=== PATIENT | male | born 1970 | race Caucasian/White ===

== ENCOUNTER 2017-01-04 16:29 | Inpatient (IN) | payer BC ==
[~2017-01-04] VITALS: Ht 180.3 cm; Wt 92.8 kg
[2017-01-04 16:51] VITALS: BP 130/94; PULSE 60; RESP 16; TEMP 98; O2SAT 99
--- NOTE | 2017-01-04 17:12 | HHI.HP ---
[facility] Service [facility] Primary Care Physician No Primary Care Physician Admission Diagnosis Diagnoses: Chief Complaint: Finger pain Travel History International Travel<30 Days: No Contact w/Intl Traveler <30 Da: No Traveled to Known Affected Are: No History of Present Illness This patient is a 46-year-old gentleman who is otherwise healthy. 9 days ago he did have an injury with fluid while moving lumber. He says he was working in and felt a stabbing sensation in his second digit of his right hand. He thought he had a large we splinter which she pulled out. Over the last several days he's had increasing swelling and redness. Today he can no longer bend his finger at this second joint and there is a fluid collection on the palmar aspect of the finger. Patient does not have a fever or chills but has had increasing pain not relieved with ibuprofen at home but relieved with Dilaudid here in the emergency room. Patient was seen in the emergency room and recommend for admission due to the significant change of the finger. Review of Systems Constitutional: DENIES: Diaphoretic episodes, Fatigue, Fever, Weight gain, Weight loss, Chills, Dizziness, Change in appetite, Night Sweats Endocrine: DENIES: Heat/cold intolerance, Polydipsia, Polyuria, Polyphagia Eyes: DENIES: Blurred vision, Eye pain Ears, nose, mouth, throat: DENIES: Tinnitus, Hearing loss, Vertigo, Nasal discharge, Oral lesions, Throat pain, Hoarseness, Ear Pain, Running Nose, Epistaxis, Sinus Pain, Toothache, Odynophagia Respiratory: DENIES: Apneas, Cough, Snoring, Wheezing, Hemoptysis, Sputum production, Shortness of breath Cardiovascular: DENIES: Chest pain, Palpitations, Syncope, Dyspnea on Exertion , PND, Lower Extremity Edema, Orthopnea, Claudication Genitourinary: DENIES: Sexual dysfunction, Urinary frequency, Urinary incontinence, Urgency, Hematuria, Dysuria, Nocturia, Penile Discharge, Testicular Pain, Testicular Swelling Musculoskeletal: COMPLAINS OF: Joint pain, Joint Swelling Integumentary: DENIES: Abnormal pigmentation, Nail changes, Pruritus, Rash Hematologic/lymphatic: DENIES: Bruising, Lymphadenopathy Immunologic/allergic: DENIES: Eczema, Urticaria Neurologic: DENIES: Abnormal gait, Headache, Localized weakness, Paresthesias, Seizures, Speech Problems, Tremor, Poor Balance Psychiatric: DENIES: Anxiety, Confusion, Mood changes, Depression, Hallucinations, Agitation, Suicidal Ideation, Homicidal Ideation, Delusions Past Family Social History Past Medical History Asthma Past Surgical History Right knee Nasal septoplasty Reported Medications Denies prescription medications Allergies: Coded Allergies: No Known Allergies (Unverified , 01/04/17) Active Ordered Medications Denies Family History Mother is healthy, father had hypertension Social History No tobacco or alcohol dependency patient lives with his girlfriend and works as a mechanical project engineer Physical Exam Vital Signs Vital Signs Date Time Temp Pulse Resp B/P Pulse Ox O2 Delivery O2 Flow Rate FiO2 01/04/17 16:51 98.0 60 16 130/94 99 Physical Exam GENERAL: This is a well-nourished, well-developed patient, in no apparent distress. SKIN: No rashes, ecchymoses or lesions. Cool and dry. HEAD: Atraumatic. Normocephalic. No temporal or scalp tenderness. EYES: Pupils equal round and reactive. Extraocular motions intact. No scleral icterus. No injection or drainage. ENT: Nose without bleeding, purulent drainage or septal hematoma. Throat without erythema, tonsillar hypertrophy or exudate. Uvula midline. Airway patent. NECK: Trachea midline. No JVD or lymphadenopathy. Supple, nontender, no meningeal signs. CARDIOVASCULAR: Regular rate and rhythm without murmurs, gallops, or rubs. RESPIRATORY: Clear to auscultation. Breath sounds equal bilaterally. No wheezes , rales, or rhonchi. GASTROINTESTINAL: Abdomen soft, non-tender, nondistended. No hepato-splenomegaly , or palpable masses. No guarding. MUSCULOSKELETAL: Right index finger is very swollen and erythematous with a palmar sided fluid collection, other 3 Extremities without clubbing, cyanosis, or edema. No joint tenderness, effusion, or edema noted. No calf tenderness. Negative Homans sign bilaterally. NEUROLOGICAL: Awake and alert. Cranial nerves II through XII intact. Motor and sensory grossly within normal limits. Five out of 5 muscle strength in all muscle groups. Normal speech. Laboratory CBC 01/04 shows leukocytosis Imaging On my review X-ray from [place] emergency room does show possibly to foreign bodies with excessive swelling and cellulitic changes Assessment and Plan Problem List: (1) Cellulitis and abscess of hand ICD Code: L03.119 Status: Acute Plan: We'll continue with IV antibiotics Hand surgery evaluation for foreign body Continue pain medication as needed Assessment and Plan Plan of care to be determined by Hospital course Code Status Full code Discussed Condition With ER Dr. Cruz, patient girlfriend and [facility] RN Physician Certification 2 Midnight Certification Type: Admission for Inpatient Services Order for Inpatient Services The services are ordered in accordance with Medicare regulations or non- Medicare payer requirements, as applicable. In the case of services not specified as inpatient-only, they are appropriately provided as inpatient services in accordance with the 2-midnight benchmark. Estimated LOS (days): 3 3 days is the estimated time the patient will need to remain in the hospital, assuming treatment plan goals are met and no additional complications. Post-Hospital Plan: Home Mckenzie Lennon MD Jan 04, 2017 17:12
[2017-01-04] MEDS ORDERED: ONDANSETRON HCL 4 MG/2 ML VIAL IVP PRN (17:15)
[2017-01-04] MEDS ORDERED: ACETAMINOPHEN 325 MG TAB PO PRN (17:15)
[2017-01-04] MEDS: IBUPROFEN 400 MG TAB PO PRN ×2 (18:04→22:57)
[2017-01-04] MEDS: HYDROmorphone HCL PF 1 MG/ML VIAL IV PUSH PRN ×2 (18:05→22:56)
[2017-01-04 20:00] VITALS: BP 126/80; PULSE 61; PULSE 62; RESP 18; TEMP 97.9; O2SAT 98
[2017-01-04] MEDS ORDERED: VANCOMYCIN INJ 1,000 MG in SODIUM CHLOR 0.9% 250 ML INJ 250 ML IV SCH (21:15)
[2017-01-04] MEDS ORDERED: Vancomycin Consult Pharmacy 1 EA OTHER SCH (21:15)
[2017-01-04] MEDS ORDERED: HYDROmorphone HCL PF 1 MG/ML VIAL IV PUSH ONE (21:45)
[2017-01-04] MEDS: cefTRIAXone INJ 1,000 MG in SODIUM CHLORIDE 0.9% INJ 100 ML IV SCH (22:10)
[2017-01-04 22:13] LABS: CHLORIDE 103 MEQ/L (98-107); POTASSIUM 3.9 MEQ/L (3.5-5.1); SODIUM (NA) 139 MEQ/L (136-145)
[2017-01-04 22:17] LABS: ANION GAP 6 MEQ/L (5-15); BICARBONATE 30.4 MEQ/L (21.0-32.0); BLOOD UREA NITROGEN 12 MG/DL (7-18)
[2017-01-04 22:20] LABS: ALT (GPT) 18 U/L (12-78); AST (GOT) 10 U/L (15-37); GLOMERULAR FILTRATION RATE 90 ML/MIN (>89)
[2017-01-04 22:22] LABS: TOTAL BILIRUBIN ADULT 0.3 MG/DL (0.2-1.0)
[2017-01-04 22:23] LABS: ALKALINE PHOSPHATASE 57 U/L (45-117)
[2017-01-04] MEDS: VANCOMYCIN INJ 1,500 MG in SODIUM CHLORID 0.9% 500 ML INJ 500 ML IV SCH (23:30)
[2017-01-05] VITALS: BP 123/84; PULSE 60; RESP 18; TEMP 99.5; O2SAT 96
[2017-01-05] MEDS: IBUPROFEN 400 MG TAB PO PRN ×2 (05:30→12:08)
[2017-01-05] MEDS: HYDROmorphone HCL PF 1 MG/ML VIAL IV PUSH PRN ×4 (05:31→22:58)
[2017-01-05 06:18] LABS: AUTOMATED NEUTROPHIL # 7.9 TH/MM3 (1.8-7.7); BASOPHIL # 0.1 TH/MM3 (0-0.2); BASOPHIL % 0.5 % (0.0-2.0); EOSINOPHIL # 1.1 TH/MM3 (0-0.4); EOSINOPHIL % 8.3 % (0.0-4.0); HEMATOCRIT 37.6 % (39.0-51.0); HEMO FLAGS DIFF FINAL; LYMPH % 22.8 % (9.0-44.0); MEAN CORPUSCULAR HGB CONC 33.7 % (32.0-36.0); MONO % 9.2 % (0.0-8.0); NEUT % 59.2 % (16.0-70.0); PLATELET COUNT 259 TH/MM3 (150-450); RED BLOOD COUNT 4.22 MIL/MM3 (4.50-5.90); RED CELL DISTRIBUTION WIDTH 11.5 % (11.6-17.2); WHITE BLOOD COUNT 13.3 TH/MM3 (4.0-11.0)
[2017-01-05] MEDS ORDERED: HYDROmorphone HCL PF 1 MG/ML VIAL IV PUSH ONE (06:30)
[2017-01-05] MEDS ORDERED: ACETAMINOPHEN/HYDROcodone 325 MG/7.5 MG TAB PO PRN (07:15)
[2017-01-05 08:00] VITALS: BP 103/72; PULSE 64; RESP 18; TEMP 97.3; O2SAT 97
--- NOTE | 2017-01-05 10:31 | HHI.PR ---
Subjective Remarks Patient seen today in follow-up for Finger infection. No new complaints today. Tolerating IV antibiotics without difficulty. Care plan discussed with patient, [facility] nurse Objective Vitals Vital Signs Date Time Temp Pulse Resp B/P Pulse Ox O2 Delivery O2 Flow Rate FiO2 01/05/17 08:00 97.3 64 18 103/72 97 01/05/17 06:05 16 01/05/17 06:05 16 01/05/17 00:00 99.5 60 18 123/84 96 01/04/17 22:44 16 01/04/17 20:00 97.9 62 18 126/80 98 01/04/17 20:00 97.9 61 18 126/80 98 01/04/17 16:51 98.0 60 16 130/94 99 I/O 01/04/17 01/04/17 01/04/17 01/05/17 01/05/17 01/05/17 07:00 15:00 23:00 07:00 15:00 23:00 Intake Total 240 ml 280 ml Balance 240 ml 280 ml Intake Oral 240 ml 280 ml # Voids 1 1 # Bowel Movements 0 0 Result Diagram: 01/05/17 0503 01/04/17 2151 Objective Remarks GENERAL: This is a well-nourished, well-developed patient, in no apparent distress. CARDIOVASCULAR: Regular rate and rhythm without murmurs, gallops, or rubs. RESPIRATORY: Clear to auscultation. Breath sounds equal bilaterally. No wheezes , rales, or rhonchi. GASTROINTESTINAL: Abdomen soft, non-tender, nondistended. Normal active bowel sounds MUSCULOSKELETAL: Right index swelling continues, other Extremities without clubbing, cyanosis, or edema. NEURO: Alert & Oriented x4 to person, place, time, situation. Moves all ext x4 A/P Problem List: (1) Cellulitis and abscess of hand ICD Code: L03.119 Status: Acute Plan: We'll continue with IV antibiotics (Rocephin/vancomycin empiric) Hand surgery for foreign body removal and further evaluation or in a.m. Continue pain medication as needed Assessment and Plan Transferred from [facility], records reviewed Mckenzie Lennon MD Jan 05, 2017 10:31
[2017-01-05 12:00] VITALS: BP 112/81; PULSE 59; RESP 18; TEMP 96.4; O2SAT 98
[2017-01-05] MEDS: VANCOMYCIN INJ 1,500 MG in SODIUM CHLORID 0.9% 500 ML INJ 500 ML IV SCH ×2 (12:08→22:32)
[2017-01-05] MEDS ORDERED: KETOROLAC TROMETHAMINE 30 MG/ML (IVP) VIAL IV PUSH ONE (12:30)
--- NOTE | 2017-01-05 12:47 | MB ---
cc: FABRICE JIMENEZ III, M.D. DATE OF CONSULTATION 01/05/2017 REASON FOR CONSULTATION The patient is a 46-year-old right-hand dominant male who about nine days ago states he was moving plywood and felt something in his right index finger. He thought he had pulled a splinter out. Over the last couple of days, he has had increased redness and swelling and he presented to the emergency room yesterday in [place] and he appears to have cellulitis and possible abscess in the right index finger. PAST MEDICAL HISTORY Denied PAST SURGICAL HISTORY 1. Right knee surgery 2. Septoplasty MEDICATIONS Denied ALLERGIES NO KNOWN DRUG ALLERGIES. SOCIAL HISTORY He denies smoking. PAST MEDICAL HISTORY Asthma according to report. FAMILY HISTORY Family history is noncontributory to this illness. REVIEW OF SYSTEMS Does not complain of any headaches, blurry or double vision. Does not complain of any coughing, wheezing or shortness of breath. He is not complaining of any chest pain or palpitations. He is not complaining of any nausea, vomiting, or abdominal pain. He is not complaining of any burning, frequency or urgency of urination. He is not complaining of any spine, neck or back pain. He is not complaining of any lower extremity weakness or swelling. He is not complaining of night sweats, fevers or chills. He is not complaining of any anxiety, depression or suicidal ideations. X-rays were performed and reviewed yesterday and these revealed no fractures, foreign bodies, or dislocations. Although in the area infection, there may be a small foreign body at the tip of the index finger from previous injury, but there is soft tissue swelling in the index finger. PHYSICAL EXAM He is well-developed and well-nourished in no apparent distress resting comfortably in bed. LABORATORY FINDINGS White blood cell count 13.3 thousand, hemoglobin 12.7 grams/deciliter, platelet count 259,000. BUN and creatinine are 12 and 0.9. VITAL SIGNS: Temperature is 97.3, heart rate 64, respiratory rate 18, blood pressure 103/72, 97% pulse oximetry. EXAMINATION OF THE RIGHT HAND: Reveals a swollen slightly erythematous right index finger with most of the erythema over the proximal phalanx. There is an eschar over the volar aspect of the middle phalanx. Capillary refill is less than two seconds in all fingertips. The finger is swollen. There is no evidence of any proximal streaking. There is no tenderness to palpation in the palm. He has a palpable radial pulse. There is no epitrochlear or axillary adenopathy palpable. There are no other wounds. IMPRESSION Right index finger infection with cellulitis. PLAN The plan is to go to the operating room tomorrow. I am going to order an IV pole sling elevation of his right hand full-time. Continue on the antibiotics of vancomycin and Rocephin that he is on right now. I discussed this with the patient and the nurse and they understand and are requesting that we proceed. MD SEEMA Madison III/VERONIQUE /12:34 PM /12:43 PM
[2017-01-05] MEDS: ACETAMINOPHEN/HYDROcodone 325 MG/7.5 MG TAB PO PRN ×2 (15:06→20:31)
[2017-01-05 16:00] VITALS: BP 100/66; PULSE 72; RESP 18; TEMP 97; O2SAT 96
[2017-01-05 20:00] VITALS: BP 116/69; PULSE 81; RESP 18; TEMP 96.3; O2SAT 96
[2017-01-05] MEDS: cefTRIAXone INJ 1,000 MG in SODIUM CHLORIDE 0.9% INJ 100 ML IV SCH (21:53)
[2017-01-06] VITALS: BP 129/82; PULSE 90; RESP 18; TEMP 100.2; O2SAT 96
[2017-01-06] MEDS: ACETAMINOPHEN/HYDROcodone 325 MG/7.5 MG TAB PO PRN ×5 (03:10→22:38)
[2017-01-06] MEDS ORDERED: BUPIVACAINE HCL PF 0.5% 30 ML VIAL ONE (07:44)
[2017-01-06] MEDS ORDERED: LIDOCAINE HCL 2% 50 ML VIAL ONE (07:44)
[2017-01-06] MEDS ORDERED: NEOMYCIN/POLYMYXIN 1 ML G.U. IRRIGANT ONE (07:45)
[2017-01-06] MEDS: HYDROmorphone HCL PF 1 MG/ML VIAL IV PUSH PRN ×4 (08:54→20:09)
[2017-01-06 08:56] VITALS: BP 146/90; PULSE 83; RESP 16; TEMP 98.2; O2SAT 97
[2017-01-06] MEDS ORDERED: PHARMACY ORDERED LAB ONE ×2 (10:45→22:45)
[2017-01-06] MEDS: VANCOMYCIN INJ 1,500 MG in SODIUM CHLORID 0.9% 500 ML INJ 500 ML IV SCH ×2 (11:00→22:38)
--- NOTE | 2017-01-06 11:43 | HHI.PR ---
Subjective Remarks Patient seen today in follow-up for right hand index finger infection. There is some spontaneous opening and drainage of the finger. Patient tolerating vancomycin and Rocephin without difficulty. Pain is minimal and relieved with IV narcotics. Objective Vitals Vital Signs Date Time Temp Pulse Resp B/P Pulse Ox O2 Delivery O2 Flow Rate FiO2 01/06/17 08:56 98.2 83 16 146/90 97 01/06/17 00:00 100.2 90 18 129/82 96 01/05/17 20:00 96.3 81 18 116/69 96 01/05/17 16:00 97.0 72 18 100/66 96 01/05/17 12:00 96.4 59 18 112/81 98 I/O 01/05/17 01/05/17 01/05/17 01/06/17 01/06/17 01/06/17 07:00 15:00 23:00 07:00 15:00 23:00 Intake Total 280 ml 560 ml 240 ml Output Total 0 ml Balance 280 ml 560 ml 240 ml Intake Oral 280 ml 240 ml IV Total 560 ml Output Stool Total 0 ml # Voids 1 2 2 # Bowel Movements 0 0 Result Diagram: 01/05/17 0503 01/04/17 2151 Objective Remarks GENERAL: This is a well-nourished, well-developed patient, in no apparent distress. CARDIOVASCULAR: Regular rate and rhythm without murmurs, gallops, or rubs. RESPIRATORY: Clear to auscultation. Breath sounds equal bilaterally. No wheezes , rales, or rhonchi. GASTROINTESTINAL: Abdomen soft, non-tender, nondistended. Normal active bowel sounds MUSCULOSKELETAL: Right index swelling with area of open serosanguineous drainage , other Extremities without clubbing, cyanosis, or edema. NEURO: Alert & Oriented x4 to person, place, time, situation. Moves all ext x4 A/P Problem List: (1) Cellulitis and abscess of hand ICD Code: L03.119 Status: Acute Plan: We'll continue with IV antibiotics (Rocephin/vancomycin empiric) Hand surgery for foreign body removal and further evaluation today Continue IV Dilaudid for pain medication as needed Assessment and Plan Transferred from [facility], records reviewed Mckenzie Lennon MD Jan 06, 2017 11:43
[2017-01-06] MEDS ORDERED: MIDAZOLAM HCL 2 MG/2 ML VIAL ONE (12:12)
[2017-01-06] MEDS ORDERED: ONDANSETRON HCL 4 MG/2 ML VIAL IV PUSH ONE (13:44)
[2017-01-06] MEDS ORDERED: PROPOFOL 200 MG/20 ML AMP IV ONE (13:44)
--- NOTE | 2017-01-06 14:52 | MP ---
cc: SUHAS MARISCAL III, M.D. DATE OF SURGERY: 01/06/2017 PREOPERATIVE DIAGNOSIS Right index finger infection. POSTOPERATIVE DIAGNOSIS Right index finger infection. PROCEDURE Right index finger incision and drainage. SURGEON Suhas Mariscal III, MD DETAILS OF PROCEDURE The patient was brought to the operating room and placed supine on the operating table. After the correct site and side of surgery were verified by members of each team in the room multiple times including the patient and myself and after adequate preoperative markings were verified by everyone and after an adequate preoperative timeout was performed to everyone's satisfaction and after adequate general anesthesia had been achieved, the right upper extremity was prepped and draped in traditional sterile surgical fashion. A 50/50 mixture of 2% plain lidocaine and 0.5% plain Marcaine was infiltrated in the skin and subcutaneous tissue at the base of the index finger at the metacarpal level in the palm for a metacarpal level block. The hand was elevated then pressure was held on the brachial artery for one minute and a highly placed well-padded axillary tourniquet was inflated to 200 mmHg for a total of 11 minutes. A [place] style incision was made at the volar aspect of the finger over the proximal and middle phalanges volarly and purulent fluid was obtained. This was cultured and passed off the field as a specimen for a stat. Gram stain as well as routine culture and sensitivity. All infected fluid and tissue was then removed sharply. Exploration proximally did not reveal any further drainage coming from the palm. The axillary tourniquet was released. The hand and all the fingers became immediately soft, pink and warm and had brisk capillary refill of less than 2 seconds including the index finger. Two liters worth of antibiotic antiseptic saline solution was then used to thoroughly flush out the wound which was also scrubbed. Quarter-inch iodoform was placed in the deepest part of the wound. The wound was left wide open. The hand and arm were cleansed and dried. A sterile bulky protective dressing was made in the usual fashion. The patient was awakened from anesthesia and transported to the post-anesthesia care unit in stable condition at the end of the case. The sponge, needle and instrument counts were correct at the end of the case as reported by the nurses in the room. MD JL Madison III /1:36 PM /2:44 PM
[2017-01-06 16:03] LABS: BICARBONATE 28.5 MEQ/L (21.0-32.0)
[2017-01-06 16:08] LABS: BASOPHIL # 0.2 TH/MM3 (0-0.2); EOSINOPHIL # 0.1 TH/MM3 (0-0.4); EOSINOPHIL % 0.9 % (0.0-4.0); LYMPH % 5.6 % (9.0-44.0); LYMPHOCYTE # 0.9 TH/MM3 (1.0-4.8); MEAN CELL VOLUME 88.5 FL (80.0-100.0); MEAN CORPUSCULAR HEMOGLOBIN 30.5 PG (27.0-34.0); MEAN CORPUSCULAR HGB CONC 34.5 % (32.0-36.0); MONO % 1.9 % (0.0-8.0); NEUT % 90.6 % (16.0-70.0); PLATELET COUNT 291 TH/MM3 (150-450); RED CELL DISTRIBUTION WIDTH 11.6 % (11.6-17.2); WHITE BLOOD COUNT 16.5 TH/MM3 (4.0-11.0)
[2017-01-06 16:09] LABS: HEMO FLAGS DIFF FINAL
[2017-01-06] MEDS: IBUPROFEN 400 MG TAB PO PRN ×2 (16:39→20:33)
[2017-01-06 16:56] VITALS: BP 115/68; PULSE 91; RESP 15; TEMP 98.9; O2SAT 94
[2017-01-06 20:00] VITALS: BP 116/61; PULSE 78; RESP 20; TEMP 100.1; O2SAT 96
[2017-01-06] MEDS: cefTRIAXone INJ 1,000 MG in SODIUM CHLORIDE 0.9% INJ 100 ML IV SCH (20:08)
[2017-01-07] VITALS: BP 114/72; PULSE 55; RESP 18; TEMP 97.5; O2SAT 97
[2017-01-07] MEDS: ACETAMINOPHEN/HYDROcodone 325 MG/7.5 MG TAB PO PRN ×3 (06:00→17:22)
[2017-01-07 08:00] VITALS: BP 116/67; PULSE 57; RESP 16; TEMP 96; O2SAT 98
[2017-01-07] MEDS: HYDROmorphone HCL PF 1 MG/ML VIAL IV PUSH PRN (11:11)
[2017-01-07] MEDS: VANCOMYCIN INJ 1,500 MG in SODIUM CHLORID 0.9% 500 ML INJ 500 ML IV SCH ×2 (11:11→23:27)
[2017-01-07] MEDS ORDERED: MAGNESIUM HYDROXIDE SUSP 30 ML CUP PO ONE (11:15)
[2017-01-07] MEDS ORDERED: DOCUSATE SODIUM 50 MG/SENNA 8.6 MG TAB PO ONE (11:15)
[2017-01-07 11:52] VITALS: BP 133/74; PULSE 70; RESP 16; TEMP 96.6; O2SAT 99
--- NOTE | 2017-01-07 12:31 | HHI.PR ---
Subjective Remarks no new complaints; pain seems to be under control Objective Vital Signs Date Time Temp Pulse Resp B/P Pulse Ox O2 Delivery O2 Flow Rate FiO2 01/07/17 11:52 96.6 70 16 133/74 99 01/07/17 08:00 96.0 57 16 116/67 98 01/07/17 00:00 97.5 55 18 114/72 97 01/06/17 20:00 100.1 78 20 116/61 96 01/06/17 17:39 18 01/06/17 16:56 98.9 91 15 115/68 94 01/06/17 15:45 18 01/06/17 15:45 18 01/06/17 14:20 98.3 70 16 121/74 97 01/06/17 14:05 72 16 118/75 97 01/06/17 13:50 70 16 110/67 99 01/06/17 13:35 99.2 66 20 98/55 97 Room Air I/O 01/06/17 01/06/17 01/06/17 01/07/17 01/07/17 01/07/17 07:00 15:00 23:00 07:00 15:00 23:00 Intake Total 0 ml 980 ml 750 ml 600 ml Balance 0 ml 980 ml 750 ml 600 ml Intake Oral 0 ml 0 ml 750 ml IV Total 280 ml 600 ml Other 700 ml # Voids 4 2 3 # Bowel Movements 0 0 Result Diagram: 01/06/17 1545 01/06/17 1545 Objective Remarks right IF viable, CR<2 sec at tip; erythema starting to ease up; no purulent drainage nurse just did first packing and dressing change Assessment and Plan Problem List: (1) Cellulitis and abscess of hand Status: Acute Plan: dressing packing changes q8 ok to shower continue IV abx and strict elevation of right hand Suhas Mariscal III, MD Jan 07, 2017 12:31
[2017-01-07] MEDS: IBUPROFEN 400 MG TAB PO PRN ×2 (13:56→22:19)
--- NOTE | 2017-01-07 13:56 | HHI.PR ---
Subjective Remarks Patient seen this morning around 10:30 AM. Says he is feeling all right. Denies any chest pain or shortness of breath. Reports right hand pain is under control. Objective Vital Signs Date Time Temp Pulse Resp B/P Pulse Ox O2 Delivery O2 Flow Rate FiO2 01/07/17 11:52 96.6 70 16 133/74 99 01/07/17 08:00 96.0 57 16 116/67 98 01/07/17 00:00 97.5 55 18 114/72 97 01/06/17 20:00 100.1 78 20 116/61 96 01/06/17 17:39 18 01/06/17 16:56 98.9 91 15 115/68 94 01/06/17 15:45 18 01/06/17 15:45 18 01/06/17 14:20 98.3 70 16 121/74 97 01/06/17 14:05 72 16 118/75 97 I/O 01/06/17 01/06/17 01/06/17 01/07/17 01/07/17 01/07/17 07:00 15:00 23:00 07:00 15:00 23:00 Intake Total 0 ml 980 ml 750 ml 600 ml Balance 0 ml 980 ml 750 ml 600 ml Intake Oral 0 ml 0 ml 750 ml IV Total 280 ml 600 ml Other 700 ml # Voids 4 2 3 # Bowel Movements 0 0 Result Diagram: 01/06/17 1545 01/06/17 1545 Objective Remarks GENERAL: Patient sitting up in bed. Appears comfortable. SKIN: Warm and dry. HEAD: Normocephalic. EYES: No scleral icterus. No injection or drainage. NECK: Supple, trachea midline. No JVD. CARDIOVASCULAR: Regular rate and rhythm without murmurs, gallops, or rubs. RESPIRATORY: Breath sounds equal bilaterally. No accessory muscle use. GASTROINTESTINAL: Abdomen soft, non-tender, nondistended. MUSCULOSKELETAL: No cyanosis, or edema. Right hand bandaged. Index finger with peripheral sensation intact. BACK: Nontender without obvious deformity. No CVA tenderness. A/P Assessment and Plan ====01/07/17===== a1C ordered pending. Laxatives ordered for constipation. -Low-grade fever 100.1 overnight. Recheck CBC tomorrow. -Operative cultures are reviewed with staph aureus. Sensitivities pending. //Cellulitis and abscess of hand //Postoperative day one removal of foreign body/debridement. -continue with IV antibiotics (Rocephin/vancomycin empiric) -Follow up cultures. Staph aureus growing so far. -post-Operative management as per hand surgery. Appreciate assistance. -Continue IV Dilaudid for pain medication as needed -A1c ordered and pending. //Constipation. Laxatives ordered. Addison Grover MD Jan 07, 2017 13:56
[2017-01-07 16:00] VITALS: BP 106/71; PULSE 65; RESP 16; TEMP 97.7; O2SAT 98
[2017-01-07 17:44] LABS: HEMOGLOBIN A1a 1.2 %; HEMOGLOBIN A1b 0.7 %; HEMOGLOBIN Ao 85.9 %; HEMOGLOBIN F 0.9 %; HEMOGLOBIN LA1C 1.7 %; HEMOGLOBIN P3 3.6 %
[2017-01-07 20:00] VITALS: BP 115/70; PULSE 64; RESP 18; TEMP 97.9; O2SAT 95
[2017-01-07] MEDS: cefTRIAXone INJ 1,000 MG in SODIUM CHLORIDE 0.9% INJ 100 ML IV SCH (22:19)
[2017-01-08] VITALS: BP 109/74; PULSE 71; RESP 18; TEMP 96.8; O2SAT 96
[2017-01-08] MEDS ORDERED: POLYETHYLENE GLYCOL 17 GM PKG PO PRN (07:15)
[2017-01-08 08:00] VITALS: BP 128/87; PULSE 75; RESP 20; TEMP 96.5; O2SAT 98
[2017-01-08] MEDS: DOCUSATE SODIUM 50 MG/SENNA 8.6 MG TAB PO SCH ×2 (08:14→20:44)
[2017-01-08 11:03] LABS: AUTOMATED NEUTROPHIL # 7.6 TH/MM3 (1.8-7.7); BASOPHIL # 0.2 TH/MM3 (0-0.2); BASOPHIL % 2.2 % (0.0-2.0); EOSINOPHIL # 0.9 TH/MM3 (0-0.4); EOSINOPHIL % 8.3 % (0.0-4.0); HEMATOCRIT 36.4 % (39.0-51.0); LYMPH % 14.5 % (9.0-44.0); LYMPHOCYTE # 1.6 TH/MM3 (1.0-4.8); MEAN CELL VOLUME 89.5 FL (80.0-100.0); MEAN CORPUSCULAR HGB CONC 34.7 % (32.0-36.0); MONO % 7.1 % (0.0-8.0); NEUT % 67.9 % (16.0-70.0); PLATELET COUNT 330 TH/MM3 (150-450); RED BLOOD COUNT 4.07 MIL/MM3 (4.50-5.90); RED CELL DISTRIBUTION WIDTH 11.6 % (11.6-17.2); WHITE BLOOD COUNT 11.1 TH/MM3 (4.0-11.0)
[2017-01-08 11:06] LABS: HEMO FLAGS AUTO DIFF
[2017-01-08 11:13] LABS: CHLORIDE 105 MEQ/L (98-107); POTASSIUM 3.9 MEQ/L (3.5-5.1); SODIUM (NA) 141 MEQ/L (136-145)
[2017-01-08 11:17] LABS: ANION GAP 6 MEQ/L (5-15); BICARBONATE 29.7 MEQ/L (21.0-32.0)
[2017-01-08 11:18] LABS: BLOOD UREA NITROGEN 11 MG/DL (7-18)
[2017-01-08 11:20] LABS: ALT (GPT) 20 U/L (12-78)
[2017-01-08 11:21] LABS: AST (GOT) 14 U/L (15-37); GLOMERULAR FILTRATION RATE 80 ML/MIN (>89)
[2017-01-08 11:22] LABS: TOTAL BILIRUBIN ADULT 0.2 MG/DL (0.2-1.0)
[2017-01-08 11:23] LABS: ALKALINE PHOSPHATASE 58 U/L (45-117)
[2017-01-08 11:38] LABS: PLATELET ESTIMATE SMEAR NORMAL (NORMAL); PLATELET MORPHOLOGY NORMAL (NORMAL); SCAN/DIFF AUTO DIFF CONFIRMED
[2017-01-08] MEDS: VANCOMYCIN INJ 1,500 MG in SODIUM CHLORID 0.9% 500 ML INJ 500 ML IV SCH (11:44)
[2017-01-08 11:53] VITALS: BP 123/79; PULSE 65; RESP 20; TEMP 97.7; O2SAT 99
--- NOTE | 2017-01-08 14:26 | HHI.PR ---
Subjective Remarks Patient seen this morning around 10 AM. Says he is feeling well. Denies any chest. Shortness of breath. Reports pain is under control. Denies any nausea or vomiting. Constipation is resolved. Objective Vital Signs Date Time Temp Pulse Resp B/P Pulse Ox O2 Delivery O2 Flow Rate FiO2 01/08/17 11:53 97.7 65 20 123/79 99 01/08/17 08:00 96.5 75 20 128/87 98 01/08/17 00:00 96.8 71 18 109/74 96 01/07/17 20:00 97.9 64 18 115/70 95 01/07/17 16:00 97.7 65 16 106/71 98 I/O 01/07/17 01/07/17 01/07/17 01/08/17 01/08/17 01/08/17 07:00 15:00 23:00 07:00 15:00 23:00 Intake Total 600 ml 630 ml 1170 ml 480 ml 1050 ml Output Total 0 ml Balance 600 ml 630 ml 1170 ml 480 ml 1050 ml Intake Oral 630 ml 480 ml 1050 ml IV Total 600 ml 1170 ml Output Stool Total 0 ml # Voids 3 3 5 # Bowel Movements 1 Result Diagram: 01/08/17 1055 01/08/17 1055 Objective Remarks GENERAL: Patient sitting up in bed. Appears comfortable. Alert and oriented 3. No change on exam from yesterday. SKIN: Warm and dry. HEAD: Normocephalic. EYES: No scleral icterus. No injection or drainage. NECK: Supple, trachea midline. No JVD. CARDIOVASCULAR: Regular rate and rhythm without murmurs, gallops, or rubs. RESPIRATORY: Breath sounds equal bilaterally. No accessory muscle use. GASTROINTESTINAL: Abdomen soft, non-tender, nondistended. MUSCULOSKELETAL: No cyanosis, or edema. Right next finger bandage. Index finger with peripheral sensation intact. BACK: Nontender without obvious deformity. No CVA tenderness. A/P Assessment and Plan ====01/07/17===== a1C 5.5. -Constipation resolved. -Leukocytosis 11. Much improved. -Cultures reviewed. Staph. Sensitivities have returned. Pansensitive. -Can discharge home if cleared by hand surgery. //Cellulitis and abscess of hand //Postoperative day one removal of foreign body/debridement. -continue with IV antibiotics (Rocephin/vancomycin empiric) -Follow up cultures. Staph aureus growing so far. -post-Operative management as per hand surgery. Appreciate assistance. -Continue IV Dilaudid for pain medication as needed -A1c 5.5 //Constipation. Laxatives ordered. Addison Grover MD Jan 08, 2017 14:26
[2017-01-08] MEDS: ceFAZolin 2 GM PREMIX 50 ML IV SCH ×2 (14:39→22:30)
[2017-01-08] MEDS ORDERED: KETOROLAC TROMETHAMINE 60 MG/2 ML (IM) VIAL IM PRN (15:15)
--- NOTE | 2017-01-08 15:21 | HHI.PR ---
Subjective Remarks no new complaints; pain seems to be under control Objective Vital Signs Date Time Temp Pulse Resp B/P Pulse Ox O2 Delivery O2 Flow Rate FiO2 01/08/17 11:53 97.7 65 20 123/79 99 01/08/17 08:00 96.5 75 20 128/87 98 01/08/17 00:00 96.8 71 18 109/74 96 01/07/17 20:00 97.9 64 18 115/70 95 01/07/17 16:00 97.7 65 16 106/71 98 I/O 01/07/17 01/07/17 01/07/17 01/08/17 01/08/17 01/08/17 07:00 15:00 23:00 07:00 15:00 23:00 Intake Total 600 ml 630 ml 1170 ml 480 ml 1050 ml Output Total 0 ml Balance 600 ml 630 ml 1170 ml 480 ml 1050 ml Intake Oral 630 ml 480 ml 1050 ml IV Total 600 ml 1170 ml Output Stool Total 0 ml # Voids 3 3 5 # Bowel Movements 1 Result Diagram: 01/08/17 1055 01/08/17 1055 Objective Remarks right IF viable, CR<2 sec at tip; no purulent drainage edema significantly improved as well as the erythema tip is soft and sensate wound bed granulating finger is stiff as expected Assessment and Plan Problem List: (1) Cellulitis and abscess of hand Status: Acute Plan: POD 2 dressing packing changes q8 exercise finger ok to shower continue IV abx and strict elevation of right hand Cx Staph aureus, S Suhas Mariscal III, MD Jan 08, 2017 15:21
[2017-01-08 16:00] VITALS: BP 131/94; PULSE 64; RESP 20; TEMP 97.5; O2SAT 100
[2017-01-08] MEDS: ASCORBIC ACID 500 MG TAB PO SCH (16:05)
[2017-01-08] MEDS: MULTIVITAMIN TAB PO SCH (16:05)
[2017-01-08] MEDS ORDERED: KETOROLAC TROMETHAMINE 30 MG/ML (IVP) VIAL IV PUSH PRN (17:00)
[2017-01-08 20:32] VITALS: BP 121/72; PULSE 70; RESP 16; TEMP 98.1; O2SAT 97
[2017-01-09 00:26] VITALS: BP_SYST 110; BP_SYST 124; BP_DIAS 66; BP_DIAS 83; PULSE 59; PULSE 60; RESP 16; RESP 18; TEMP 96.2; TEMP 99.1; O2SAT 100; O2SAT 97
[2017-01-09] MEDS: ceFAZolin 2 GM PREMIX 50 ML IV SCH (06:10)
[2017-01-09 08:00] VITALS: BP 130/87; PULSE 66; RESP 17; TEMP 97.6; O2SAT 98
[2017-01-09] MEDS: DOCUSATE SODIUM 50 MG/SENNA 8.6 MG TAB PO SCH (08:44)
[2017-01-09] MEDS: MULTIVITAMIN TAB PO SCH (08:45)
[2017-01-09] MEDS: ASCORBIC ACID 500 MG TAB PO SCH (08:45)
[2017-01-09] MEDS ORDERED: NORC5TAB PO (10:39)
[2017-01-09] MEDS ORDERED: CEPH-460 PO (10:41)
--- NOTE | 2017-01-09 10:44 | HHI.PR ---
Subjective Remarks no new complaints; the patient's able to do his own dressing changes Objective Vital Signs Date Time Temp Pulse Resp B/P Pulse Ox O2 Delivery O2 Flow Rate FiO2 01/09/17 08:00 97.6 66 17 130/87 98 01/09/17 00:26 99.1 59 18 124/83 100 01/08/17 20:32 98.1 70 16 121/72 97 01/08/17 16:00 97.5 64 20 131/94 100 01/08/17 11:53 97.7 65 20 123/79 99 I/O 01/08/17 01/08/17 01/08/17 01/09/17 01/09/17 01/09/17 07:00 15:00 23:00 07:00 15:00 23:00 Intake Total 480 ml 1050 ml 1100 ml Output Total 0 ml Balance 480 ml 1050 ml 1100 ml Intake Oral 480 ml 1050 ml IV Total 1100 ml Output Stool Total 0 ml # Voids 3 5 1 1 # Bowel Movements 1 Result Diagram: 01/08/17 1055 01/08/17 1055 Objective Remarks right IF viable, CR<2 sec at tip; no purulent drainage edema significantly improved as well as the erythema tip is soft and sensate wound bed granulating finger is stiff as expected but his range of motion is improving as the edema continues to subside Assessment and Plan Problem List: (1) Cellulitis and abscess of hand Status: Acute Plan: POD 3 Okay to discharge home from hand standpoint Prescriptions for antibiotics and pain medicine to be provided to the patient Follow-up with me in the office later this week, I gave the patient my business card and contact information He knows to call if he develops any redness, increased swelling, or discharge, or fever dressing packing changes q8 exercise finger ok to shower strict elevation of right hand Cx Staph aureus, S (2) Cellulitis and abscess of hand Status: Acute Suhas Mariscal III, MD Jan 09, 2017 10:44
--- NOTE | 2017-01-10 14:32 | HHI.DS ---
Discharge Summary Admission Date Jan 04, 2017 at 16:30 Discharge Date: Jan 09, 2017 Admitting Diagnosis Cellulitis right index finger (1) Cellulitis and abscess of hand ICD Code: L03.119 Procedures I+d right index finger. please see report. Brief History - From Admission This patient is a 46-year-old gentleman who is otherwise healthy. 9 days ago he did have an injury with fluid while moving lumber. He says he was working in and felt a stabbing sensation in his second digit of his right hand. He thought he had a large we splinter which she pulled out. Over the last several days he's had increasing swelling and redness. Today he can no longer bend his finger at this second joint and there is a fluid collection on the palmar aspect of the finger. Patient does not have a fever or chills but has had increasing pain not relieved with ibuprofen at home but relieved with Dilaudid here in the emergency room. Patient was seen in the emergency room and recommend for admission due to the significant change of the finger. CBC/BMP: 01/08/17 1055 01/08/17 1055 Significant Findings Laboratory Tests Test 01/08/17 10:55 White Blood Count 11.1 TH/MM3 (4.0-11.0) Red Blood Count 4.07 MIL/MM3 (4.50-5.90) Hemoglobin 12.6 GM/DL (13.0-17.0) Hematocrit 36.4 % (39.0-51.0) Eosinophils (%) (Auto) 8.3 % (0.0-4.0) Basophils (%) (Auto) 2.2 % (0.0-2.0) Eosinophils # (Auto) 0.9 TH/MM3 (0-0.4) Estimat Glomerular Filtration 80 ML/MIN (>89) Rate Aspartate Amino Transf 14 U/L (15-37) (AST/SGOT) Albumin 3.0 GM/DL (3.4-5.0) PE at Discharge GENERAL: This is a well-nourished, well-developed patient, in no apparent distress. CARDIOVASCULAR: Regular rate and rhythm without murmurs, gallops, or rubs. RESPIRATORY: Clear to auscultation. Breath sounds equal bilaterally. No wheezes , rales, or rhonchi. GASTROINTESTINAL: Abdomen soft, non-tender, nondistended. Normal active bowel sounds MUSCULOSKELETAL: Right index swelling with area of open serosanguineous drainage , other Extremities without clubbing, cyanosis, or edema. NEURO: Alert & Oriented x4 to person, place, time, situation. Moves all ext x4 Pt update on day of discharge Patient says he is feeling well. Pain is controlled. I discussed with hand surgeon, who is cleared for discharge, follow-up as outpatient with an surgery. Hospital Course Patient underwent incision and drainage, extraction of splinter from right index finger by hand surgery. He was managed with IV antibiotics with improvement in swelling. Cultures returned with staff, pansensitive. Patient was discharged home on Keflex to complete treatment course. We'll follow up with hand surgery as outpatient. An surgery has instructed patient on wound dressing changes. For problem-based summary from most recent progress note, please see below. ====01/08/17===== a1C 5.5. -Constipation resolved. -Leukocytosis 11. Much improved. -Cultures reviewed. Staph. Sensitivities have returned. Pansensitive. -Can discharge home if cleared by hand surgery. //Cellulitis and abscess of hand //Postoperative day one removal of foreign body/debridement. -continue with IV antibiotics (Rocephin/vancomycin empiric) -Follow up cultures. Staph aureus growing so far. -post-Operative management as per hand surgery. Appreciate assistance. -Continue IV Dilaudid for pain medication as needed -A1c 5.5 //Constipation. Laxatives ordered. Pt Condition on Discharge: Good Discharge Disposition: Discharge Home Discharge Time: > 30 minutes Discharge Instructions DIET: Follow Instructions for: As Tolerated, No Restrictions Activities you can perform: Regular-No Restrictions Follow up Referrals: Hand Surgery - 1 Week with Suhas Mariscal III, MD PCP Follow-up - 1 Week New Medications: Cephalexin (Keflex) 500 Mg Capsule 500 MG PO TID Infection #42 Ref 0 CAP Hydrocodone-Acetaminophen (Naylor) 5-325 mg Tab 1 TAB PO Q6H PRN PAIN #12 Ref 0 TAB Addison Grover MD 23, 2017 14:32
== END 2017-01-09 11:44 | disposition home or self-care (01) | DRG 580 ==
LOC: PHOR 16:29 → UNDOADMIN 16:30 → PHEDA 16:30 → PH3B 16:30
PROVIDERS: ADMIT Internal Medicine; ATTEND Internal Medicine
PROC: 0JBJ0ZZ Excision of Right Hand Subcutaneous Tissue and Fascia, Open Approach (ICD-10-PCS; principal; 2017-01-06 12:39)
DX: L03.011 Cellulitis of right finger (principal); L02.519 Cutaneous abscess of unspecified hand; J45.909 Unspecified asthma, uncomplicated; K59.00 Constipation, unspecified
CPT/HCPCS: 73130; 80048; 80053; 80202; 83036; 85025; 85610; 85730; 86403; 87015; 87070; 87102; 87116; 87147; 87186; 87205; 87206; 90715; 99281; J0690; J0696; J1170; J1885; J2250; J2405; J3010; J3370; J7040; J7050

== ENCOUNTER → 2017-06-09 | Day surgery (SDC) | payer BC ==
[~2017-06-09] VITALS: Ht 180.3 cm; Wt 97.5 kg
[~2017-06-09] MED LIST: BUPIVACAINE HCL PF 0.5% 30 ML VIAL ONE; CEPH-460 PO; DEXAMETHASONE SOD PHOS 4 MG/ML VIAL ONE; FAMOTIDINE 20 MG/2 ML VIAL ONE; HYDR-3288 PO; LACTATED RINGER'S 1000 ML INJ 1,000 ML ONE; LIDOCAINE HCL 2% 50 ML VIAL ONE; MIDAZOLAM HCL 2 MG/2 ML VIAL ONE; NEOMYCIN/POLYMYXIN 1 ML G.U. IRRIGANT ONE; ceFAZolin 2 GM PREMIX 50 ML IV SCH
[2017-06-09 08:36] LABS: HEMATOCRIT 44.9 % (39.0-51.0); MEAN CELL VOLUME 89.4 FL (80.0-100.0); MEAN CORPUSCULAR HEMOGLOBIN 28.6 PG (27.0-34.0); PLATELET COUNT 265 TH/MM3 (150-450); RED BLOOD COUNT 5.02 MIL/MM3 (4.50-5.90); RED CELL DISTRIBUTION WIDTH 11.9 % (11.6-17.2); REVIEW FLAG FINAL; WHITE BLOOD COUNT 5.9 TH/MM3 (4.0-11.0)
[2017-06-09 12:35] VITALS: BP 111/53; PULSE 53; RESP 16; TEMP 97.7; O2SAT 100
--- NOTE | 2017-06-10 12:23 | MP ---
cc: SUHAS MARISCAL III, M.D. DATE OF SURGERY 06/09/2017 PREOPERATIVE DIAGNOSIS Right index finger scar contracture/cicatrix. POSTOPERATIVE DIAGNOSIS Right index finger scar contracture/cicatrix. PROCEDURE Right index finger scar excision, full-thickness skin grafting x4. SURGEON Suhas Mariscal III, MD. DETAILS OF PROCEDURE The patient was brought to the operative room and placed supine on the operating table. After the correct site and side of surgery were verified by members of each team in the room multiple times including the patient and myself and after adequate preoperative markings were verified by everyone in the room and after adequate general anesthesia was achieved, the right upper extremity was prepped and draped in traditional sterile surgical fashion. A 50/50 mixture of 2% plain lidocaine and 0.5% plain Marcaine was infiltrated in the skin and subcutaneous tissue into the palm proximal to the index finger for a digital block and subcutaneously on the volar aspect of the wrist as well. The cicatrix was outlined. The limb was then exsanguinated with an Jonatan wrap and a highly placed well-padded axillary tourniquet was inflated to 200 mmHg for a total of 42 minutes, 13 minutes at first and then 29 minutes a second time. The hand was placed palm up in a lead hand and the cicatrix was excised in its entirety. The flexor tendon sheath was not compromised and all of the pulleys appeared to be intact. Relaxing incisions on the PIP and the DIP flexion creases were made. Checkrein ligaments then had to be released today to approximate the acute extension of the PIP joint. The PIP joint was not able to be fully extended and still had a 30 degree flexion contracture at best, but the finger was otherwise fully extended. The A4 isiah was intact. Thorough irrigation was performed. A full-thickness skin graft was then obtained from the volar wrist flexion crease. It was tailored to fit and had to be divided into four separate parts so as not to put any tension at the joint flexion crease. This see tailored to fit and secured in place with multiple 4-0 chromic sutures. Passive range of motion examination was then performed and was normal with the exception of the contracture at the PIP joint. The donor site was thoroughly cleansed and dried. 3-0 Vicryl sutures in the deep subcutaneous fascia followed by a running subcuticular 4-0 Monocryl suture and Mastisol and Steri-Strips were applied. The axillary tourniquet was released a final time and the hand and all the fingers on the right including the index finger became immediately soft, pink and warm and had brisk capillary refill of less than 2 seconds. There was no evidence of any bleeding or hematoma formation. A bolster dressing using Xeroform and then gauze was made overlying the skin graft. The tip was soft, pink and warm and had capillary refill of less than two seconds. A bulky short-arm radial gutter dressing keeping the index and middle fingers together and extended was made. The patient was awakened from anesthesia and transported to the post-anesthesia care unit awake and in stable condition. At the end of the case the sponge, needle and instrument counts were correct as reported by the nurses in the room. MD SEEMA Madison III/LONG /12:09 PM /11:55 AM
== END | disposition home or self-care (01) ==
LOC: PHSDC 07:45
PROVIDERS: ATTEND Orthopaedic Surgery Hand Surgery
DX: L90.5 Scar conditions and fibrosis of skin (principal); M20.091 Other deformity of right finger(s)
CPT/HCPCS: 00400; 13131; 15240; 36415; 85027; 88305; J0690; J1100; J2250; J7120